=== PATIENT | female | born 1980 | race African-American/Black ===

== ENCOUNTER → 2024-06-02 | Outpatient (CLI) | payer OTHER, SELFPAY ==
--- NOTE | 2024-06-02 15:30 | XR_ITS ---
Examination: Breast ultrasound, unilateral, left complete Date and time of exam: June 02, 2024 1449 hours Comparison 10/30/2023 INDICATIONS: Breast discharge and pain beginning 2 days ago, breast sonogram 10/30/2023 2:00 nodule Technique: Real-time pacheco scale ultrasonographic imaging performed left breast including all 4 quadrants as well as nipple retroareolar and axillary region. Findings: 2:00 cyst 4 x 4 millimeter 4.7 cm axillary lymph node IMPRESSION: BI-RADS Category 3: Probably benign findings Recommend 1 additional 6 month left breast sonogram follow-up to document stability of enlarged left axillary lymph node
== END | disposition home or self-care (01) ==
PROVIDERS: Referring Provider Specialist; Visit Provider Specialist
DX: R59.0 Localized enlarged lymph nodes (principal)
CPT/HCPCS: 76641